=== PATIENT | male | born 1955 | race Caucasian/White ===

== ENCOUNTER 2016-11-14 19:20 | Emergency (ER) | payer SELFPAY ==
[~2016-11-14] VITALS: Ht 167.6 cm; Wt 71.0 kg
[2016-11-14 19:25] VITALS: Ht 167.6 cm; Wt 71.0 kg
[2016-11-14] MEDS ORDERED: CLOT30CR24 TOP (22:56)
--- NOTE | 2016-11-14 23:05 | ERD ---
ER Documentation Chief Complaint Date/Time DATE: 11/14/16 TIME: 22:57 Chief Complaint tip of penis redness for past day with "no sex" HPI Patient is a 61-year-old Taj[place] speaking male who presents to the ED for swelling to his penis. He states that he used a penis pump yesterday and states that he inserted in his penis and now complains of foreskin swelling. He denies pain. He denies problems urinating or dysuria or urgency. He denies urinary symptoms. He denies abnormal penile discharge. He is asymptomatic. He denies abdominal pain, nausea, vomiting or diarrhea. Denies fever or chills. He denies any history of STDs. He denies sexual activity. ROS All systems reviewed and are negative except as per history of present illness. Medications Home Meds Active Scripts Clotrimazole* (Clotrimazole* AF) 1% - 30 Gm Cream.gm., 1 APPLIC TOP BID for 7 Days, TUB Prov:MICHELLE PARRA PA-C 11/14/16 Allergies Allergies: Coded Allergies: No Known Allergy (Unverified , 11/14/16) PMhx/Soc History of Surgery: No Anesthesia Reaction: No Hx Neurological Disorder: No Hx Respiratory Disorders: No Hx Cardiac Disorders: No Hx Psychiatric Problems: No Hx Miscellaneous Medical Probl: No Hx Alcohol Use: No Hx Substance Use: No Hx Tobacco Use: No Smoking Status: Never smoker FmHx Family History: No coronary disease, No diabetes, No other Physical Exam Vitals Vital Signs Date Time Temp Pulse Resp B/P Pulse Ox O2 Delivery O2 Flow Rate FiO2 11/14/16 19:25 98.6 84 18 137/82 96 Physical Exam GENERAL: Well-developed, well-nourished male. Appears in no acute distress. HEAD: Normocephalic, atraumatic. : foreskin is inflammed, no redness, no signs of infection. foreskin can be pulled back. no discharge. BACK: No midline tenderness. Extremities: Equal pulses bilaterally. No peripheral clubbing, cyanosis or edema. No unilateral leg swelling. NEUROLOGIC: Alert and oriented. Moving all four extremities. 5/5 strength in all extremities. Normal speech. Steady gait. SKIN: Normal color. Warm and dry. No rashes or lesions. Capillary refill < 2 seconds Procedures/MDM ER COURSE: I kept the patient and/or family informed of laboratory and diagnostic imaging results throughout the emergency room course. MEDICAL DECISION MAKING: This is a 61-year-old male who presents with penis foreskin swelling. Vital signs were reviewed. Patient is afebrile. Patient is not hypoxic. He is not toxic or ill-appearing. Patient has temperature 98.6, blood pressure 137/82. Patient does not have any medical problems. Patient has side effects due to penis pump use. However I do not think there is any urologic emergency. No signs of paraphimosis, phimosis. Low suspicion for ACS, AAA, perforated ulcer, bowel obstruction, cholecystitis, choledocholithiasis, cholangitis, pancreatitis , hepatic abscess, appendicitis, diverticulitis. I do not think any medication or admission for patient. Low suspicion for testicular torsion, cellulitis, abscess, STDs, sepsis. I do not think ultrasound is needed at this time. DISCHARGE: At this time, patient is stable for discharge and outpatient management with no new complaints during the ER course. Patient was sent home with clotrimazole cream. Advised patient to not use penis pump. Patient will be discharged home with instructions to recheck for new or worsening symptoms such as fever, nausea , weakness, LOC and to follow up with primary care in the next 1-2 days. Patient was advised to return to the ER for any new or worsening symptoms. Plan was discussed and patient and/or family understands and agrees. Home instructions were given. Departure Diagnosis: Primary Impression: Foreskin swelling Condition: Stable Patient Instructions: Care of the Uncircumcised Penis Additional Instructions: Llame al doctor GERARDO y nicola daljit JYOTSNA PARA DENTRO DE 1-2 COYNE.Dgale a la secretaria que nosotros le instruimos hacer esta jyotsna.Avise o llame si bishop condicin se empeora antes de la jyotsna. Regresa aqui si peor o no mejor. MICHELLE PARRA PA-C Nov 14, 2016 23:05
== END 2016-11-14 23:12 | disposition home or self-care (01) ==
LOC: FTE 19:20
DX: N50.89 Other specified disorders of the male genital organs (principal)
CPT/HCPCS: 99283